=== PATIENT | male | born 1960 | race Caucasian/White ===

== ENCOUNTER → 2016-11-02 | Outpatient (CLI) | payer OTHER ==
--- NOTE | ~2016-11-02 | US84 ---
[id number] [facility]. [facility] [address]. [place], [place] [address] [id number] O MR#: [id number] Acc #: [id number] NAME: CELSO LE : 1960 SEX: M STUDY DATE/TIME: 11/02/2016 9:47 UNIT: [facility] ROOM: STUDY DESCRIPTION: US LE Veins Complete James Stdy Attending Physician: Jina Diallo A.P.R.N. Referring Physician: Jina Diallo A.P.R.N. Ordering Physician: Jina Diallo A.P.R.N. Primary Care Physician: Jina Diallo A.P.R.N. MEDICAL IMAGING REPORT This report is preliminary unless electronic signature is present EXAM Bilateral lower extremity venous Doppler 11/02/2016 HISTORY 2-3 month history of leg swelling. TECHNIQUE Venous ultrasound examination of both lower extremities was performed using grayscale, spectral Doppler and color flow Doppler imaging. FINDINGS The examination is negative. There is no evidence of deep venous thrombus from the groin to the lower calf bilaterally. Visualized greater saphenous veins are also patent. IMPRESSION Negative examination. No evidence of lower extremity deep venous thrombosis. Dictated by... Cayden Wilkins M.D. THIS IS AN ELECTRONICALLY VERIFIED REPORT Cayden Wilkins M.D. at 11/02/2016 3:59 PM TEV/aa TD: 11/02/2016 14:32 JOB #: [id number] MEDICAL IMAGING REPORT Page 1 of 1 COPY
== END | disposition home or self-care (01) ==
LOC: CNIV 09:18
DX: M79.89 Other specified soft tissue disorders (principal); R79.1 Abnormal coagulation profile
CPT/HCPCS: 93970